=== PATIENT | female | born 1960 ===

== ENCOUNTER 2021-04-17 12:10 | Outpatient (CLI) | payer OTHER | END 2021-04-17 12:22 | disposition home or self-care (01) | LOC: SONOGRAMA 12:10 | PROVIDERS: ATTEND Pathology Anatomic Pathology & Clinical Pathology | DX: E11.9 Type 2 diabetes mellitus without complications (principal) ==

== ENCOUNTER 2023-09-02 13:38 | Outpatient (CLI) | payer OTHER | END 2023-09-02 13:44 | disposition home or self-care (01) | LOC: SONOGRAMA 13:38 | PROVIDERS: ATTEND Pathology Anatomic Pathology & Clinical Pathology | DX: D34 Benign neoplasm of thyroid gland (principal); E04.9 Nontoxic goiter, unspecified; R59.0 Localized enlarged lymph nodes ==